=== PATIENT | male | born 1990 ===

== ENCOUNTER → 2018-01-10 | Outpatient (REF) | payer OTHER ==
[2018-01-10 10:13] LABS: SEMEN APPEARANCE OPAQUE (OPAQUE)
[2018-01-10 10:14] LABS: % NORMAL FORMS 8 % (>=4); IMMOTILITY 51 %; NON PROGRESSIVE MOTILITY (c) 13 %; PROGRESSIVE MOTILITY (a) 36 % (>=32); SEMEN VISCOSITY LIQUID (LIQUID); SEMEN VOLUME 3.9 ml (4.0-5.0); SPERM CONCENTRATION 64.5 M/ml (>=15.0); SPERM# 251.5 M/Ejac (>=39); TOTAL MOTILITY 49 % (>=40); TOTAL PROGRESSIVE SPERM 90.5 M/Ejac.; WBC CONCENTRATION <=1 M/ml (<=1 M/ml)
== END ==
LOC: M LAB REF 09:56
DX: N46.8 Other male infertility (principal)
CPT/HCPCS: 89320